=== PATIENT | female | born 1975 | race Caucasian/White ===

== ENCOUNTER 2017-06-21 04:00 | Emergency (ER) | payer MEDICAID ==
[2017-06-21] MEDS: ONDANSETRON (ODT) 4 MG TAB ODT (06:45)
[2017-06-21 06:50] LABS: URINE PH (Dip) POC 6.5 (5.0-8.5)
[2017-06-21 06:50] LABS: URINE BLOOD (Dip) POC 1+ (NEGATIVE); URINE GLUCOSE (Dip) POC Negative (NEGATIVE); URINE KETONES (Dip) POC Negative (NEGATIVE); URINE LEUKOCYTE EST (Dip) POC Negative (NEGATIVE); URINE NITRITE (Dip) POC Negative (NEGATIVE); URINE TOTAL PROTEIN POC Negative (NEGATIVE)
== END 2017-06-21 07:38 | disposition home or self-care (01) ==
LOC: FTE 04:00
DX: R11.2 Nausea with vomiting, unspecified (principal)
CPT/HCPCS: 81003; 99283